=== PATIENT | male | born 1990 | race Caucasian/White ===

== ENCOUNTER 2020-07-20 15:00 | Outpatient (RCR) | payer OTHER, SELFPAY ==
--- NOTE | 2020-06-23 15:19 | PTOPEVAL ---
PHYSICAL THERAPY EVALUATION AND PLAN OF CARE 06-23-20 Thank you for referring Sawyer Saldivar to [facility], for the diagnosis of lumbago with sciatica. Sawyer is scheduled to be seen for therapy? 2 x/week for 4 weeks. Please review, sign, date and return this plan of care HOLDEN. I agree with and certify that the following plan of care is medically necessary. Referring Physician Date Attending Provider: Kane Goerge MD *PT Outpatient Evaluation Document 06/23/20 14:05 RIKKI (Rec: 06/23/20 15:19 RIKKI [id number]) Past Medical History Source of Past Medical History Patient Musculoskeletal History Hx Back Pain Yes: chronic back pain, about 4 years Hx Orthopedic Surgery Yes: L knee arthroscopy; cyst removed from tail bone ~ 4 yr ago Hx Other Musculoskeletal Disorders Yes: B knee pain; Evaluation Information Problem Diagnosis lumbago with sciatica Onset May 17, 2020 Subjective Information -went to hospital May 17, due Query Text:As Reported By Patient/ to back pain and could not Family walk -May 20 woke up with normal back pain, went to work, it was starting to spasm in back and had to fall down to his knees; could not stand or walk ; took 2-3 days before could stand/walk again -also June 04, woke up with normal back pain, then got worse as day goes on and had spasms and could not walk; - dr said have to have PT before can get an MRI Diagnostic Tests X-Rays For This Problem Yes: when at hospital- xrays were negative MRI For This Problem No: want to get MRI of his back Other Tests For This Problem No Previous Treatments Previous Treatments For This Problem had PT in past about 2 yr ago; electrical stim helped; exercises helped some Prior Level of Function Activity Level (Last 3 Months) Occupation have 2 [employer] jobs- lifting 30# at most at one and 100# at other one Hand Dominance Right Activity of Daily Living Ability Independent Indoor/Home Mobility Independent Community Mobility Independent Stairs Ability Independent Functional Cognition (Planning, [place]
--- NOTE | 2020-07-20 15:46 | PTOPEVAL ---
PHYSICAL THERAPY REEVALUATION / HOLD PT 08-18-20 Refer to the clinical summary below for his status with today's reeval, compared to the initial evaluation. The goals were partially met for flexibility and strength. The pain goals were not achieved. Sawyer is to call for a follow up appointment with you. If PT is to continue, please issue him a new script to continue treatment. Thank you for referring Sawyer Saldivar to [facility].? Please review, sign, date and return this reevaluation report HOLDEN. I agree with and certify that the following plan of care is medically necessary. Referring Physician Date Attending Provider: Kane George MD Document 07/20/20 14:55 RIKKI (Rec: 07/20/20 15:46 RIKKI [id number]) Assessment Status Re-evaluation Subjective Information Sawyer reports: working still Query Text:As Reported By Patient/ , with dr restriction of 15# Family lifting; stim, heat and massage help back; want to get an MRI and find out what is going on with my back and find out why I feel like an 80 year old; has been doing his exercises at home; Pain Assessment Timing of Pain Assessment Timing of Pain Assessment Assessment Pain Scale Pain Scale Used Numeric (1 - 10) Self Report Pain Assessment Bilateral Back Reported Pain Level 4 Pain Description Aching,Burning Radicular Pain Location R LE post to knee-- intermittent; L LE ant & post thigh to knee; L LE > R Pain Frequency Chronic,Continuous Other Pain Description L lumbar area; Lowest Pain Intensity 2 Greatest Pain Intensity 9 Pain Aggravating Factors Exercise/Activity,Lifting Pain Score Pain Score 4: Self Report Additional Pain Score Comments Oswestry self assessment functional score 60% limitation in activity tolerance; reported walking 45 min, working 30 min, sleep awaken 2 -3 x/night due to pain Interventions Used Interventions Used By Clinicians Education,Exercise Pain Relief Interventions Used By Heat,Ice,Inactivity/Rest, Patient Medication Other Alleviating Interventions taking naproxen; stretching helps; stim and massage help; Cervical and Lumbar ROM Lumbar ROM Lumbar Comments stand trunk flexion hands to mid hardy - increase pain and pull in R and L lumbar, with flexi
--- NOTE | 2020-08-12 10:19 | PCPTNOTE ---
PHYSICAL THERAPY DISCHARGE 08-12-20 Attending Provider: Kane George MD Patient:Sawyer Saldivar Date of :1990 Sawyer has not returned for any further treatments since the reevaluation on 07/20/2020, therefore he will be discharged at this time. Refer to that report for his status at the last session. Thank you for referring Mr. Saldivar to [facility]. Please review, sign, date and return this discharge summary HOLDEN. I have been updated about the patient's current status and I agree with discharge from the above service at this time. Referring Physician Date
== END 2020-08-13 17:28 | disposition home or self-care (01) ==
LOC: ANHPT 15:00
PROVIDERS: PCP Emergency Medicine; Visit Provider Emergency Medicine
DX: M54.40 Lumbago with sciatica, unspecified side (principal)
CPT/HCPCS: 97014; 97110; 97140; 97161; G0283

== ENCOUNTER 2020-12-20 01:13 | Emergency (ER) | payer OTHER, SELFPAY ==
--- NOTE | ~2020-12-20 | CT_ITS ---
EXAMINATION: CT brain wo con DATE: 12/20/2020 02:27 INDICATION: Head injury post fall TECHNIQUE: Computed tomography (CT) of the head was performed without intravenous contrast. Sagittal and coronal reconstructions were performed. The mA was adjusted according to patient size. Iterative reconstruction technique was employed. The dose-length product was 681.00 mGy-cm. COMPARISON: None FINDINGS: No fracture. No acute intracranial hemorrhage, acute infarction or abnormal extra axial fluid collect ion. Ventricles are normal and symmetric. No mass/mass effect. The orbits, paranasal sinuses and mast oid air cells are normal. IMPRESSION: 1. Normal head CT. No fracture or acute intracranial process. Reviewed, dictated and finalized at location A. PLATFORM SUPERVISOR
--- NOTE | ~2020-12-20 | CT_ITS ---
EXAMINATION: CT cervical spine wo con DATE: 12/20/2020 02:28 INDICATION: Neck pain post fall with head injury TECHNIQUE: Computed tomography (CT) of the cervical spine was performed without intravenous contrast. Automated exposure control and iterative reconstruction technique were employed. The dose-length pro duct was 420.66 mGy-cm. COMPARISON: None FINDINGS: Mild nonfocal reversal of the normal cervical lordosis which could be positional or secondary to musc le spasm. Vertebral body and disc heights are normal. No fracture. Facet and uncovertebral joints are unremarkable. Central canal and neural foramina are patent throughout. Cervical soft tissues are unr emarkable. Visualized airway and apices of lungs are clear. IMPRESSION: 1. Nonfocal mild reversal of the normal cervical lordosis which could be positional or due to muscle spasm. No other osseous abnormality. Reviewed, dictated and finalized at location A. OR CORPORATE ACCOUNTANT IMPRESSION: 1. Nonfocal mild reversal of the normal cervical lordosis which could be positi onal or due to muscle spasm. No other osseous abnormality.
[2020-12-20 01:16] VITALS: BP 167/98; PULSE 97; RESP 14; TEMP 36.3; O2SAT 100
[2020-12-20] MEDS: LORazepam (*CRX) 0.5 MG TABLET PO (02:24)
--- NOTE | 2020-12-20 03:06 | ED.FALL ---
HPI - Fall General Chief Complaint: Fall Stated Complaint: slip and fall at home 3 hours ago now having panic Time Seen by Provider: 12/20/20 01:24 STOCK MOVER Source: RN notes reviewed History of Present Illness HPI Narrative: Patient presents emergency department from home for fall. Patient states approximately 3 hours prior to arrival he had slipped he said he hit the cabinet at the bottom of his chin causing his neck and head to the went back he states that since that time has had pain in his posterior head as well as his neck states that after the fall he became very anxious and does have a history of anxiety is able to usually to sit and calm himself states that the symptoms progressively worsened he started to have numbness in his bilateral fingers and feet he states he feels very anxious at this time he is unsure if he lost his consciousness he denies any vision changes, chest pain shortness of breath abdominal pain nausea vomiting denies any weakness of any of the extremities Related Data Allergies Allergy/AdvReac Type Severity Reaction Status Date / Time fentanyl Allergy Unknown Unknown Unverified 12/20/20 01:22 STOCK MOVER Penicillins Allergy Unknown Unknown Unverified 12/20/20 01:22 STOCK MOVER Sulfa (Sulfonamide Allergy Unknown Unknown Verified 02/20/19 15:16 Antibiotics) sulfamethoxazole Allergy Unknown Unknown Unverified 12/20/20 01:22 STOCK MOVER trimethoprim Allergy Unknown Unknown Unverified 12/20/20 01:22 STOCK MOVER Review of Systems Review of Systems: Gen.: Denies fevers or chills Eyes: Denies eye pain or visual change ENT: Denies congestion Respiratory: Denies shortness of breath or cough CV: Denies chest pain or palpitations GI: Denies abdominal pain nausea, emesis or diarrhea Musculoskeletal: Denies back pain or muscle pain Neuro: Reports numbness and tingling of bilateral hands and feet Skin: Denies rash Psych: Reports anxiety Except as documented, all other systems reviewed and negative PMFSH Past Medical History Medical History (Updated 12/20/20 @ 03:11 by Jamal Alcantara DO) Anxiety Social History Social History (Updated 12/20/20 @ 03:09 by Jamal Alcantara DO) Smoking status: Never smoker Exam Narrative: APPEARANCE: Well appearing, no apparent distress, well-nourished. HEENT: normocephalic atraumtaic. TMs clear bilaterally. Oral mucosa moist. No tenderness over bilateral zygomatic arch. Full range of motion of jaw without pain. No tenderness of jaw EYES: PERRL NECK: Supple. No midline tenderness to palpation. Tender palpation bilateral paravertebral C4-7 RESPIRATORY: No respiratory distress. Clear to auscultation bilaterally CARDIOVASCULAR: Regular rate and rhythm without murmurs rubs or gallops. ABDOMINAL: Soft, nontender, nondistended, no rebound or guarding MUSCULOSKELETAl: Moves all extremities. No tenderness to palpation of bilateral upper and lower extremities. No clubbing cyanosis or edema Back: No midline thoracic or lumbar tenderness to palpation NEURO: Awake and alert ?3. Follows commands. Speech normal. No focal deficits. Past medical history:[] Social history:[] SKIN:: Warm, dry. Normal Color Course Course Emergency Course: Patient states he is feeling much better following Ativan states numbness and tingling in bilateral hands and feet has resolved Discussed with patient results of workup and diagnosis. Discussed need for follow-up with primary care, proper use of medication, and reasons to return to the emergency department. Patient understands and agrees to current treatment plan Vital Signs Vital signs: Vital Signs Temperature 97.4 F L 12/20/20 01:16 STOCK MOVER Pulse Rate 97 12/20/20 01:16 STOCK MOVER Respiratory Rate 14 12/20/20 01:16 STOCK MOVER Blood Pressure 167/98 H 12/20/20 01:16 STOCK MOVER Pulse Oximetry 100 12/20/20 01:16 STOCK MOVER Temperature 97.4 F L 12/20/20 01:16 STOCK MOVER Pulse Rate 97 12/20/20 01:16 STOCK MOVER Respiratory Rate 14 12/20/20 01:16 STOCK MOVER Blood Pressure 167/98 H 12/20/20 01:16 STOCK MOVER Pulse Oximetry
[2020-12-20 03:18] VITALS: BP 121/72; PULSE 64; RESP 16; O2SAT 100
== END 2020-12-20 03:18 | disposition home or self-care (01) ==
PROVIDERS: Emergency Provider Emergency Medicine; PCP Emergency Medicine
DX: S16.1XXA Strain of muscle, fascia and tendon at neck level, initial encounter (principal); F41.9 Anxiety disorder, unspecified; W01.198A Fall on same level from slipping, tripping and stumbling with subsequent striking against other object, initial encounter
CPT/HCPCS: 70450; 72125; 99284; A9270

== ENCOUNTER 2021-04-20 15:53 | Emergency (ER) | payer OTHER, SELFPAY ==
[2021-04-20 16:10] VITALS: BP 115/73; PULSE 89; RESP 16; TEMP 36.4; O2SAT 99
--- NOTE | 2021-04-20 16:31 | ED.MALEGU ---
HPI - Male Genitourinary General Chief complaint: Urogenital-Male Stated complaint: std testing Time Seen by Provider: 04/20/21 16:31 Source: patient Mode of arrival: ambulatory Limitations: no limitations History of Present Illness HPI Narrative: 30-year-old male presents with complaint of dysuria that started yesterday. States tip of penis is sore. Denies lesions or rash. Is aware that a male sex partner has chlamydia. Would like treatment with antibiotics. All systems negative except as noted above. Related Data Home Medications Medication Instructions Recorded Confirmed duloxetine mg PO 04/20/21 Allergies Allergy/AdvReac Type Severity Reaction Status Date / Time fentanyl Allergy Unknown Unknown Unverified 12/20/20 01:22 WELDER APPRENTICE GAS Penicillins Allergy Unknown Unknown Unverified 12/20/20 01:22 WELDER APPRENTICE GAS Sulfa (Sulfonamide Allergy Unknown Unknown Verified 02/20/19 15:16 Antibiotics) sulfamethoxazole Allergy Unknown Unknown Unverified 12/20/20 01:22 WELDER APPRENTICE GAS trimethoprim Allergy Unknown Unknown Unverified 12/20/20 01:22 WELDER APPRENTICE GAS Review of Systems Review of Systems: CONSTITUTIONAL: Denies fever, chills, or sweats. EYES: Denies visual changes, redness, or discharge. ENT: Denies rhinorrhea, congestion, sore throat, or otalgia. CARDIOVASCULAR: Denies chest pain, palpitations, or edema. RESPIRATORY: Denies cough or dyspnea. GASTROINTESTINAL: Denies abdominal pain, nausea, vomiting, or diarrhea. GENITOURINARY: Reports dysuria. Denies hematuria. SKIN: Denies rash or itching. MUSCULOSKELETAL: Denies back pain, joint pain, or myalgia. NEUROLOGIC: Denies headache, numbness, or weakness. PSYCHIATRIC: Denies anxiety or depression. All other systems reviewed are negative, except as documented in HPI. PMFSH Past Medical History Medical History (Updated 04/20/21 @ 17:04 by Ashlie Orellana NP) Anxiety Social History Social History (Updated 12/20/20 @ 03:09 by Jamal Alcantara DO) Smoking status: Never smoker Comments At time of signature, agree with nursing past medical, surgical, social and family history. There is no relevant family history pertinent to the presenting complaint. Exam Narrative: GENERAL: This is a well-nourished, well-developed patient, in no apparent distress. HEAD: normocephalic, atraumatic. EYES: PERRL. Sclera clear/white. Vision is grossly intact. EARS: External ears normal, auditory canals clear and without drainage, TMs normal without perforation. Hearing grossly intact. NOSE: External nose normal with no obvious nasal discharge, nares without redness, no rhinorrhea. THROAT: Mucous membranes moist, posterior pharynx clear. NECK: Neck supple, non-tender without lymphadenopathy, masses or thyromegaly. CARDIOVASCULAR: Regular rate and rhythm without murmurs, gallops, or rubs. RESPIRATORY: Clear to auscultation. Breath sounds equal bilaterally. No wheezes, rales, or rhonchi. GASTROINTESTINAL: Abdomen soft, non-tender, nondistended. Bowel sounds are active. No hepato-splenomegaly, or palpable masses. No guarding. : Patient deferred SKIN: warm, Dry, intact with no suspicious lesions or rash, good texture and turgor. NEURO: awake, alert, and oriented to person, place and time. There were no obvious focal neurologic abnormalities. EXTREMITIES: No joint tenderness, effusion, or edema noted. No calf tenderness. Negative Homans sign bilaterally. BACK: Nontender without deformity. No CVA tenderness. Course Course Level of Care: Express Care Visit Vital Signs Vital signs: Vital Signs Temperature 36.4 C L 04/20/21 16:10 Pulse Rate 89 04/20/21 16:10 Respiratory Rate 16 04/20/21 16:10 Blood Pressure 115/73 04/20/21 16:10 Pulse Oximetry 99 04/20/21 16:10 Temperature 36.4 C L 04/20/21 16:10 Pulse Rate 89 04/20/21 16:10 Respiratory Rate 16 04/20/21 16:10 Blood Pressure 115/73 04/20/21 16:10 Pulse Oximetry 99 04/20/21 16:10 Reviewed MDM - Male Genitourinary MDM Narrative
[2021-04-20] MEDS: cefTRIAXone 500 MG, LIDOCAINE HCL 1% LOCAL INJ 1 ML IM (16:46)
[2021-04-20 16:49] VITALS: BP 115/73; PULSE 89; RESP 16; TEMP 36.4; O2SAT 99
== END 2021-04-20 17:08 | disposition home or self-care (01) ==
PROVIDERS: Emergency Provider Nurse Practitioner Family; PCP Emergency Medicine
DX: Z20.2 Contact with and (suspected) exposure to infections with a predominantly sexual mode of transmission (principal)
CPT/HCPCS: 87491; 87591; 87661; 96372; 99213; G0463; J0696

== ENCOUNTER 2021-05-20 16:35 | Emergency (ER) | payer OTHER, SELFPAY ==
--- NOTE | ~2021-05-20 | XR_ITS ---
EXAMINATION: XR hand LT min 3V DATE: 05/20/2021 16:53 INDICATION: Left hand pain after punching a wall TECHNIQUE: Posteroanterior, oblique and lateral views of the left hand were obtained. COMPARISON: None. FINDINGS: Bone alignment is normal. No fracture. Joint spaces are normal. Soft tissue swelling over the dorsum of the hand. IMPRESSION: 1. No osseous abnormality. Reviewed, dictated and finalized at location B. IMPRESSION: 1. No osseous abnormality.
[2021-05-20 16:50] VITALS: BP 129/73; PULSE 83; RESP 18; TEMP 36.9; O2SAT 98
--- NOTE | 2021-05-20 17:15 | ED.UPPEXIN ---
HPI - Extremity Injury (Upper) General Chief Complaint: Extremity Injury, Upper Stated Complaint: left hand injury Time Seen by Provider: 05/20/21 16:42 Source: patient History of Present Illness HPI narrative: Patient Iris with left hand pain. Patient reports he punched a wall in frustration last night. Monitored his symptoms however his pain persisted 2 days who came to the ER for evaluation concerned he broke his hand. For some paresthesias to the area. Hand is achy is worse with extension of his fingers prickly digits 4 and 5. Pain does not radiate. Is not attempted medications for pain control. Related Data Home Medications Medication Instructions Recorded Confirmed duloxetine mg PO 04/20/21 Allergies Allergy/AdvReac Type Severity Reaction Status Date / Time fentanyl Allergy Unknown Unknown Unverified 12/20/20 01:22 OTR OWNER OPERATOR TRUCK DRIVER Penicillins Allergy Unknown Unknown Unverified 12/20/20 01:22 OTR OWNER OPERATOR TRUCK DRIVER Sulfa (Sulfonamide Allergy Unknown Unknown Verified 02/20/19 15:16 Antibiotics) sulfamethoxazole Allergy Unknown Unknown Unverified 12/20/20 01:22 OTR OWNER OPERATOR TRUCK DRIVER trimethoprim Allergy Unknown Unknown Unverified 12/20/20 01:22 OTR OWNER OPERATOR TRUCK DRIVER Review of Systems Review of Systems: CONSTITUTIONAL: Denies fever, chills, or sweats. EYES: Denies visual changes, redness, or discharge. SKIN: Denies rash or itching. MUSCULOSKELETAL: Denies back pain, or myalgia. NEUROLOGIC: Denies headache, numbness, dizziness, or weakness. PSYCHIATRIC: Denies anxiety or depression. PMFSH Past Medical History Medical History Anxiety Social History Social History Smoking status: Never smoker Exam Narrative: GENERAL: Well-appearing, well-nourished, and in no acute distress. HEAD: Normocephalic, atraumatic. EYES: PERRLA and EOMI. ENT: Nares clear, no rhinorrhea or epistaxis. Mucous membranes moist. NECK: Supple. No masses. No JVD EXTREMITIES: Normal range of motion. Edema to the dorsal ulnar aspect of the left hand there is mild ecchymoses there is diffuse tenderness to the area there is no obvious deformities there is no open or draining wounds range of motion remains intact at the wrist, MCP joints and IP joints and the entire hand. Cap refill less than 2 seconds in all digits on the left hand sensation intact to light touch SKIN: Warm, dry, no rash. NEURO: No focal deficits. Alert and oriented x3. PSYCH: Normal mood and affect. Course Reevaluation(s) Reevaluation #1: Patient resting comfortably results reviewed with patient. Patient comfortable outpatient plan. Date: 05/20/21 Time: 17:17 Vital Signs Vital signs: Vital Signs Temperature 36.9 C 05/20/21 16:50 Pulse Rate 83 05/20/21 16:50 Respiratory Rate 18 05/20/21 16:50 Blood Pressure 129/73 05/20/21 16:50 Pulse Oximetry 98 05/20/21 16:50 Temperature 36.9 C 05/20/21 16:50 Pulse Rate 83 05/20/21 16:50 Respiratory Rate 18 05/20/21 16:50 Blood Pressure 129/73 05/20/21 16:50 Pulse Oximetry 98 05/20/21 16:50 MDM - Extremity Injury (Upper) MDM Narrative Medical decision making narrative: H&P as above, vss, pt looks clinically well, exam with neurovascularly intact hand, imaging without acute process, additional labs/img considered, symptomatic relief available as needed, on reevaluation pt continues to looks clinically well. Suspect soft tissue injury, dns avulsion injury, fracture, dislocation, tendon injury. plan to tx/monitor as op w/ pcm f/u findings/plan discussed with pt, pt agree/comfortable with plan, return precautions given Imaging Data Radiologist's impression: Impressions Hand X-Ray 05/20/21 16:55 IMPRESSION: 1. No osseous abnormality. Discharge Plan Discharge Clinical Impression: Contusion Qualifiers: Encounter type: initial encounter Contusion area: hand Laterality: left Qualified Code(s): S60.222A - Contusion of left hand,
== END 2021-05-20 17:25 | disposition home or self-care (01) ==
PROVIDERS: Emergency Provider Emergency Medicine; PCP Emergency Medicine
DX: S60.222A Contusion of left hand, initial encounter (principal); F41.9 Anxiety disorder, unspecified; W22.09XA Striking against other stationary object, initial encounter
CPT/HCPCS: 73130; 99283

== ENCOUNTER 2021-07-24 04:19 | Emergency (ER) | payer OTHER, SELFPAY ==
[2021-07-24] VITALS (14 sets, daily range): BP systolic 93–193; BP diastolic 47–97; PULSE 75–88; RESP 15–21; TEMP 36.7; O2SAT 91–100
--- NOTE | ~2021-07-24 | CT_ITS ---
EXAMINATION: CT BRAIN W/O DATE: 07/24/2021 05:20 INDICATION: Altered mental status TECHNIQUE: Computed tomography (CT) of the head was performed without intravenous contrast. The dose- length product was 681.00 mGy-cm. Automated exposure control and iterative reconstruction technique w ere employed. COMPARISON: 12/20/2020 FINDINGS: Normal brain parenchymal volume for age. Normal fernandez-white differentiation. No acute intrac ranial hemorrhage, infarction, mass or mass effect. No ventriculomegaly or midline shift. Midline sagittal images demonstrate a normal corpus callosum, c raniovertebral junction and sella turcica. Basilar cisterns are patent. Paranasal sinuses and mastoids are pneumatized. No depressed skull fractures. IMPRESSION: 1. No acute intracranial abnormality. Reviewed, dictated and finalized at location A.
[2021-07-24] MEDS: LORazepam INJ (*CRX) 2 MG/ML VIAL IM ×2 (04:22→04:42)
[2021-07-24] MEDS: HALOPERIDOL LACTATE 5 MG/ML VIAL IM (04:41)
[2021-07-24] MEDS: TETANUS,DIPHTHERIA,AC PERTUSSIS ADULT (0.5 ML) BOOSTRIX IM (04:45)
--- NOTE | 2021-07-24 04:57 | ED.HEATRA ---
HPI - Head Injury General Chief complaint: Head Injury <Homer Little MD - Last Filed: 07/24/21 18:59> Stated complaint: AMS <Homer Little MD - Last Filed: 07/24/21 18:59> Time Seen by Provider: 07/24/21 04:20 <Homer Little MD - Last Filed: 07/24/21 18:59> Source: other (Law enforcement) <Homer Little MD - Last Filed: 07/24/21 18:59> History of Present Illness HPI Narrative: Patient was found naked banging on someone's door and [place] but police were called patient appeared to be altered concern for substance use EMS was contacted. EMS arrived time to evaluate the patient EMS was struck by the patient patient became increasingly combative. Law enforcement attempted to the patient to [facility] in route patient banged his head against Enforcement vehicle and patient was transported to the ER to have his injuries evaluated. Patient states he is fine answered additional questions. Law enforcement did find THC Gummies the patient <Homer Little MD - Last Filed: 07/24/21 18:59> Related Data Home medications: Home Medications Medication Instructions Recorded Confirmed duloxetine 30 mg capsule,delayed mg PO 04/20/21 release <Homer Little MD - Last Filed: 07/24/21 18:59> Allergies/Adverse reactions: Allergies Allergy/AdvReac Type Severity Reaction Status Date / Time fentanyl Allergy Unknown Unknown Unverified 12/20/20 01:22 BATCH ROOM TECHNICIAN Penicillins Allergy Unknown Unknown Unverified 12/20/20 01:22 BATCH ROOM TECHNICIAN Sulfa (Sulfonamide Allergy Unknown Unknown Verified 02/20/19 15:16 Antibiotics) sulfamethoxazole Allergy Unknown Unknown Unverified 12/20/20 01:22 BATCH ROOM TECHNICIAN trimethoprim Allergy Unknown Unknown Unverified 12/20/20 01:22 BATCH ROOM TECHNICIAN <Homer Little MD - Last Filed: 07/24/21 18:59> Review of Systems Review of Systems: ROS unobtainable: Yes unobtainable due to medical condition (Patient is combative and not answering questions) <Homer Little MD - Last Filed: 07/24/21 18:59> PMFSH Past Medical History Medical History: Medical History Anxiety <Homer Little MD - Last Filed: 07/24/21 18:59> Social History Social History: Social History Smoking status: Never smoker Substance use type: marijuana <Homer Little MD - Last Filed: 07/24/21 18:59> Exam Narrative: GENERAL: Well-appearing, well-nourished, patient is screaming thrashing around HEAD: Normocephalic, there is an abrasion on the superior aspect of his forehead as well as the medial aspect of his forehead no active bleeding no hematoma EYES: PERRLA and EOMI. ENT: Nares clear, no rhinorrhea or epistaxis. Mucous membranes moist. NECK: Supple. No masses. No JVD CHEST: Clear to auscultation. No respiratory distress. No wheezes rales or rhonchi HEART: Regular rate and rhythm. No murmur heard. Normal peripheral pulses. ABDOMEN: Soft, nontender, nondistended, normal active bowel sounds. EXTREMITIES: Normal range of motion. No edema. SKIN: Warm, dry, no rash. NEURO: No focal deficits. Alert and oriented x3. PSYCH: Tangential thoughts <Homer Little MD - Last Filed: 07/24/21 18:59> Course Reevaluation(s) Reevaluation #1: Patient presented with small enforcement and screaming the combative not answering questions banging his head against the bed slurring his words. Patient was demonstrating unsafe behavior for himself and staff. He demonstrated unsafe behavior by law enforcement and hospital staff. Patient required chemical restraints for safety and evaluation of his injuries <Homer Little MD - Last Filed: 07/24/21 18:59> Date: 07/24/21 <Homer Little MD - Last Filed: 07/24/21 18:59> Time: 04:30 <Homer Little MD - Last Filed: 07/24/21 18:59> Reevaluation #2: Patient is sleeping after sedation. Work-up thus far shows THC and
[2021-07-24] MEDS: SODIUM CHLORIDE 0.9% IV 1,000 ML 999 ML IV CONT (05:01)
--- NOTE | 2021-07-24 05:27 | PC.NURSE ---
Pt is resting in bed and is sleeping. Pt is on the central monitoring system.
[2021-07-24 05:32] LABS: Basophils Absolute Auto 0.1 K/mm3 (0.0-0.1); Basophils Percent Auto 0.8 % (0.2-1.2); Eosinophils Absolute Auto 0.1 K/mm3 (0-0.3); Eosinophils Percent Auto 1.7 % (0-4.4); Hematocrit 47.7 % (42.0-52.0); Hemoglobin 16.2 g/dL (14.0-18.0); Immature Granulocyte Absolute 0.02 K/mm3 (0.00-0.031); Immature Granulocyte Percent A 0.3 % (0-0.5); Lymphocytes Absolute Auto 2.45 K/mm3 (0.9-3.2); Lymphocytes Percent Auto 34.4 % (18.3-44.2); Mean Corpuscular Hemoglobin 29.1 pg (26-34); Mean Corpuscular Volume 85.8 fl (80-100); Mean Platelet Volume 11.9 fl (7.4-10.4); Monocytes Absolute Auto 0.7 K/mm3 (0.1-0.6); Monocytes Percent Auto 9.3 % (2.6-8.5); Neutrophils Absolute Auto 3.8 K/mm3 (1.3-6.7); Neutrophils Percent Auto 53.5 % (45.5-73.1); Platelet Count Result 246 k/mm3 (150-375); Red Blood Count 5.56 M/mm3 (4.6-6.20); Red Cell Distribution Width 12.1 % (11.5-14.5); White Blood Count 7.1 K/mm3 (4.5-10.0)
[2021-07-24 05:33] LABS: Appearance Urine Clear (Clear); Bilirubin Urine Negative (Negative); Blood Urine Negative (Negative); Color Urine Yellow (Yellow); Glucose Urine UA Negative (Negative); Ketones Urine Negative (Negative); Leukocyte Esterase Ur Negative LEU/UL (Negative); Nitrate Urine Negative (Negative); Protein Urine Negative (Negative); Specific Grav Ur <= 1.005 (1.001-1.035); Urobilinogen Urine 0.2 mg/dL (<2.0); pH Urine 5.5 (5.0-9.0)
[2021-07-24 05:34] LABS: Add Urine Microscopic? NO
[2021-07-24 05:41] LABS: Alanine Aminotransferase 20 U/L (6-50); Albumin Level 5.2 g/dL (3.5-5.1); Alkaline Phosphatase 91 U/L (38-126); Anion Gap 16 mmol/L (8-16); Aspartate Amino Transferase 28 U/L (17-59); Bilirubin,Total 0.5 mg/dL (0.2-1.3); Blood Urea Nitrogen 10 mg/dL (9-20); Calcium 8.7 mg/dL (8.4-10.2); Carbon Dioxide 22 mmol/L (22-30); Chloride 107 mmol/L (98-107); Estimated CRCL calculation 133 ml/min; Estimated Glomerular Filt Rate > 60; Glucose 89 mg/dL (65-110); Potassium 3.8 mmol/L (3.4-5.0); Sodium 145 mmol/L (137-145)
[2021-07-24 05:44] LABS: Acetaminophen < 10 ug/mL (10-30); Ammonia 16 umol/L (9-30); Ethanol 209 mg/dL (<10); Salicylate < 1.0 mg/dL (2-20)
--- NOTE | 2021-07-24 05:45 | PC.NURSE ---
Assumed care from HERMINIA Hook. Pt sleeping on stretcher at this time. Placed pt on bed alarm, yellow clasp applied, and yellow triangle placed outside of room.
[2021-07-24 05:49] LABS: Amphetamine Screen Urine Negative (Negative); Barbiturate Screen Urine Negative (Negative); Benzodiazepines Screen Urine Negative (Negative); Cannabinoid Screen Urine Positive (Negative); Cocaine Screen Urine Negative (Negative); Methadone Screen Urine Negative (Negative); Opiate Screen Urine Negative (Negative); Phencyclidine Screen Urine Negative (Negative)
--- NOTE | 2021-07-24 09:08 | PC.NURSE ---
Called Mother, states she lives 3 hours away and cannot provide transportation. Cannot provide names of anyone else who can pick him up.
--- NOTE | 2021-07-24 09:28 | PC.NURSE ---
Sitter present for fall precautions, pt. continues to frequently set off bed alarm. Pt. will not provide any information or contacts.
--- NOTE | 2021-07-24 12:07 | PC.NURSE ---
Pt. asked multiple times for phone numbers of contacts and states he needs his phone. States his brother lives 5 minutes away in [facility]. [place] [employer] called and asked about cell phone - not known to have any of pt's belongings, states belongings would be left with pt. I called pt.'s phone and it went to . States he lives with Tony Ellison, but cannot provide Tony's phone number; electronic search does not identify in an Tony Ellison in our geographical area. Per pt. demographics, pt. works at [employer]. Called and asked for emergency contact information which person could not release but stated she knew who to call. Shortly after, a male called identified himself and as Sawyer's brother and will be here in 10 minutes to pick him up.
== END 2021-07-24 12:15 | disposition home or self-care (01) ==
PROVIDERS: Emergency Medicine; Emergency Provider Emergency Medicine; PCP Emergency Medicine
DX: R41.82 Altered mental status, unspecified (principal); F10.10 Alcohol abuse, uncomplicated; S00.81XA Abrasion of other part of head, initial encounter; F41.9 Anxiety disorder, unspecified; Y90.7 Blood alcohol level of 200-239 mg/100 ml; X58.XXXA Exposure to other specified factors, initial encounter
CPT/HCPCS: 36415; 51701; 70450; 80053; 80307; 81003; 82140; 85025; 90471; 90715; 96360; 96361; 96372; 99284; J1630; J2060; J7030

== ENCOUNTER 2021-11-04 20:14 | Emergency (ER) | payer OTHER, SELFPAY ==
--- NOTE | ~2021-11-04 | XR_ITS ---
XR hand LT min 3V 11/04/2021 20:44 Indication: Left hand pain after trauma Procedure: 3 views left hand Comparison: 05/20/2021 Findings: On the lateral view there is cortical discontinuity seen posteriorly which may represent a nondisplaced fracture of a proximal metacarpal or carpal bone. This is not confirmed on AP or oblique images. No significant soft tissue abnormality. No foreign bodies. Impression: 1: Cortical irregularity dorsal to the wrist on the lateral view which may represent a nondisplaced p roximal metacarpal or carpal fracture, although not confirmed on oblique images. Correlate for point tenderness. Reviewed, dictated and finalized at location A. Impression: 1: Cortical irregularity dorsal to the wrist on the lateral view which may repr esent a nondisplaced proximal metacarpal or carpal fracture, although not confi rmed on oblique images. Correlate for point tenderness.
[2021-11-04 20:18] VITALS: BP 140/101; PULSE 79; RESP 16; TEMP 36.4; O2SAT 100
== END 2021-11-04 21:00 | disposition left against medical advice (07) ==
LOC: ANHED 23:04
PROVIDERS: Emergency Provider Emergency Medicine; PCP Emergency Medicine
DX: S69.92XA Unspecified injury of left wrist, hand and finger(s), initial encounter (principal)
CPT/HCPCS: 73130; 99199

== ENCOUNTER 2022-08-24 08:09 | Outpatient (CLI) | payer OTHER, SELFPAY ==
--- NOTE | ~2022-08-24 | XR_ITS ---
EXAMINATION: XR lumbar spine 6V w bending DATE: 08/24/2022 08:41 INDICATION: Low back pain TECHNIQUE: Anteroposterior, lateral in neutral, flexion and extension, and bilateral oblique views of the lumbar spine, and cone-down lateral view of the lumbosacral junction were obtained. COMPARISON: 11/03/2017 FINDINGS: Bone alignment is normal. There is no laxity with flexion or extension. Chronic anterior we dging is noted in the lower thoracic spine and at L1. There has been no interval change. The interver tebral disc space heights are normal. There is no fracture. IMPRESSION: 1. No acute osseous abnormality. 2. Mild chronic and stable thoracolumbar vertebral body wedging, likely developmental. Reviewed, dictated and finalized at location B. IMPRESSION: 1. No acute osseous abnormality. 2. Mild chronic and stable thoracolumbar vertebral body wedging, likely develop mental.
== END 2022-08-24 08:10 | disposition home or self-care (01) ==
DX: M99.03 Segmental and somatic dysfunction of lumbar region (principal); M48.56XA Collapsed vertebra, not elsewhere classified, lumbar region, initial encounter for fracture
CPT/HCPCS: 72114

== ENCOUNTER 2022-11-11 16:38 | Emergency (ER) | payer OTHER, SELFPAY ==
[2022-11-11 16:47] VITALS: BP 124/75; PULSE 81; RESP 17; TEMP 36.7; O2SAT 100
--- NOTE | 2022-11-11 19:42 | PC.NURSE ---
Large blisters intact to pt left 2nd & 3rd fingers. Pt c/o pain of 9. Supplies for wound care in room at bedside
[2022-11-11] MEDS: KETOROLAC 30 MG/ML VIAL (*BKC) IM (19:51)
--- NOTE | 2022-11-11 20:20 | ED.BURNSMOKE ---
HPI - Burn/Smoke Inhalation General Chief complaint: Burn/Smoke Inhalation Stated complaint: freon burn to left hand Time Seen by Provider: 11/11/22 19:04 History of Present Illness HPI Narrative: This is a 31-year-old male, with no significant past medical history, presents to the emergency department after burn to the left hand yesterday. The patient states he was working on HVAC system, when his hand (which was gloved) was sprayed with Freon. He complains of 8/10 dull pain over the left third and fourth fingers but denies pain or injury elsewhere. Related Data Home Medications Medication Instructions Recorded Confirmed duloxetine 30 mg capsule,delayed mg PO 04/20/21 release Allergies Allergy/AdvReac Type Severity Reaction Status Date / Time fentanyl Allergy Unknown Unknown Verified 11/11/22 17:11 Penicillins Allergy Unknown Unknown Verified 11/11/22 17:11 Sulfa (Sulfonamide Allergy Unknown Unknown Verified 11/11/22 17:11 Antibiotics) sulfamethoxazole Allergy Unknown Unknown Verified 11/11/22 17:11 trimethoprim Allergy Unknown Unknown Verified 11/11/22 17:11 Review of Systems Review of Systems: CONSTITUTIONAL: Denies fever, chills, or sweats. CARDIOVASCULAR: Denies chest pain, palpitations, or edema. RESPIRATORY: Denies cough or dyspnea. GASTROINTESTINAL: Denies abdominal pain, nausea, vomiting, or diarrhea. GENITOURINARY: Denies dysuria or hematuria. SKIN: Blisters of the left third and fourth digits denies rash or itching. MUSCULOSKELETAL: Denies back pain, joint pain, or myalgia. NEUROLOGIC: Denies headache, numbness, dizziness, or weakness. PSYCHIATRIC: Denies anxiety or depression. PMFSH Past Medical History Medical History Anxiety Social History Social History (Updated 11/12/22 @ 22:27 by Mitch Chambers MD) Smoking status: Never smoker Alcohol intake: current Drinks per week: 1 Substance use type: marijuana Exam Narrative: GENERAL: Well-developed, well-nourished, and in no acute distress. HEAD: Normocephalic, atraumatic. EYES: PERRLA and EOMI. CHEST: Clear to auscultation. No respiratory distress. No wheezes rales or rhonchi HEART: Regular rate and rhythm. No murmur heard. Normal peripheral pulses. ABDOMEN: Soft, nontender, nondistended, normal active bowel sounds. EXTREMITIES: No hemorrhagic bulla of the left third and fourth fingers over the dorsal aspect, each crossing the MCP. The blister of the third finger measures approximately 5 x 1 cm. The blister of the fourth finger measures approximately 3 x 1 cm. Range of motion of the third and fourth digits limited by pain. Normal range of motion of all other limbs. No edema. SKIN: Warm, dry, no rash. NEURO: Alert and oriented x3. Moving all 4 limbs purposefully. PSYCH: Normal mood and affect. Course Course Emergency Course: 20:00 - Bullae of the third and fourth fingers on the left hand lanced and drained. The wounds were dressed with Xeroform gauze. The patient's tetanus vaccination is up-to-date. Will discharge with recommendations for wound care and primary care follow-up. Discussed return and emergency precautions including signs/symptoms of wound infection and neurovascular compromise. The patient voiced understanding and is comfortable with the plan. All questions answered to his satisfaction. Vital Signs Vital signs: Vital Signs Temperature 98.1 F 11/11/22 16:47 Pulse Rate 81 11/11/22 16:47 Respiratory Rate 17 11/11/22 16:47 Blood Pressure 124/75 11/11/22 16:47 Pulse Oximetry 100 11/11/22 16:47 Oxygen Delivery Room Air 11/11/22 16:47 Temperature 98.1 F 11/11/22 16:47 Pulse Rate 81 11/11/22 16:47 Respiratory Rate 17 11/11/22 16:47 Blood Pressure 124/75 11/11/22 16:47 Pulse Oximetry 100 11/11/22 16:47 Oxygen Delivery Room Air 11/11/22 16:47 Procedures Burn Care/Dressing Burn care #1:
--- NOTE | 2022-11-11 21:18 | PC.NURSE ---
2044: Left 2nd, left 3rd fingers dressed with Xeroform gauze,4x4 & secured with Kerlix
== END 2022-11-11 21:15 | disposition home or self-care (01) ==
PROVIDERS: Emergency Provider Preventive Medicine Aerospace Medicine
DX: T53.5X1A Toxic effect of chlorofluorocarbons, accidental (unintentional), initial encounter (principal); T23.632A Corrosion of second degree of multiple left fingers (nail), not including thumb, initial encounter; T31.0 Burns involving less than 10% of body surface
CPT/HCPCS: 16020; 96372; 99283; J1885

== ENCOUNTER 2023-03-15 12:21 | Outpatient (CLI) | payer OTHER, SELFPAY ==
--- NOTE | ~2023-03-15 | MR_ITS ---
MRI of the lumbar spine Clinical History: Sciatica Technique: Axial T2-weighted images, and sagittal T1-weighted, T2-weighted, and and T2 fat-sat images were acquired. Findings: There is no fracture or subluxation of the lumbar spine. Vertebral bodies maintain normal h eight and alignment. There are reactive marrow signal changes due to degenerative disc disease and Sc hmorl's nodes. No suspicious marrow signal abnormality seen. At L1-L2, there is moderate degenerative disc narrowing. No significant disc bulge or herniation seen . There is mild facet arthropathy. No central canal stenosis or definite neural foraminal narrowing. At L2-L3, there is minimal disc bulge and mild facet arthropathy. No central canal stenosis or neural foraminal narrowing. At L3-L4, there is minimal disc bulge with mild facet arthropathy. No central canal stenosis. There i s mild bilateral neural foraminal narrowing. At L4-L5, there is mild disc bulge and mild facet arthropathy. No central canal stenosis. There is mi ld to moderate right neural foraminal narrowing. Left neural foramen preserved. At L5-S1, there is moderate degenerative disc narrowing. There is minimal disc bulge and mild facet a rthropathy. No central canal stenosis or definite neural foraminal narrowing. Paravertebral soft tissues are unremarkable. Impression: Mild degenerative spondylosis overall, as detailed above. Reviewed, dictated and finalized at [facility]. D AND [employer]ORATORY ASSISTANT Impression: Mild degenerative spondylosis overall, as detailed above.
== END 2023-03-15 12:22 | disposition home or self-care (01) ==
DX: M46.1 Sacroiliitis, not elsewhere classified (principal); M54.31 Sciatica, right side; M54.32 Sciatica, left side; M43.06 Spondylolysis, lumbar region
CPT/HCPCS: 72148